=== PATIENT | female | born 2000 | race Caucasian/White ===

== ENCOUNTER 2025-05-25 17:58 | Emergency (ER) | payer OTHER, SELFPAY ==
[2025-05-25 18:06] VITALS: BP 137/87
[2025-05-25 18:28] LABS: Hematocrit 39.8 % (37.0-47.0); Hemoglobin 13.1 g/dL (12.0-16.0); Mean Corp Hgb Conc. 32.9 g/dL (33.0-37.0); Mean Corpuscular Volume 90.7 fL (81.0-99.0); Platelet Count 141 10^3/uL (130-400); Red Cell Dist. Width 12.8 % (11.5-14.5)
[2025-05-25 18:40] LABS: HCG, Serum Qualitative Screen Negative
[2025-05-25 18:44] LABS: ALT (SGPT) 430 U/L (0-35); AST (SGOT) 143 U/L (14-36); Albumin 4.4 g/dl (3.5-5.0); Alkaline Phosphatase 361 U/L (38-126); Blood Urea Nitrogen 13 mg/dl (7-17); Calcium 9.3 mg/dl (8.4-10.2); Carbon Dioxide 28 mmol/L (22-30); Chloride 100 mmol/L (98-107); Glucose 119 mg/dl (70-99); Lipase 219 U/L (23-300); Potassium 4.1 mmol/L (3.5-5.1); Sodium 137 mmol/L (135-145); Total Protein 8.0 g/dl (6.3-8.2); eGFR > 60.00
[2025-05-25 20:32] LABS: Absolute Neutrophils -Man Diff 2.0 10^3/uL (1.4-6.5)
[2025-05-25 20:36] LABS: Normal RBC Morphology Yes; Platelets Checked Yes; Total Cells Counted 100
--- NOTE | 2025-05-25 21:37 | ED.GENMED ---
History of Present Illness
<Heather Tamez PA-C - Last Filed: 05/26/25 09:32>
General
Chief Complaint: Abdominal Pain
Source: patient and family
Exam Limitations: none
Time Seen by Provider: 05/25/25 20:40
Nursing documentation reviewed up to this point in time: agreed with
History of Present Illness
History of Present Illness:
Patient is a 24-year-old healthy female who presents to the emergency department for evaluation of mid back discomfort radiating into upper abdomen. Patient states that symptoms initially started about 1.5 weeks ago. She describes a dull ache in
her mid/right back which was present intermittently however occurring daily. There was no clear postprandial nature to pain however did feel improved when lying flat. Patient states that on Wednesday pain became much more intense and wraps around
into her upper abdomen. She describes a sharp pain under both of her rib cages. She also felt she was unable to take a deep breath as it intensified her discomfort. She was seen by her primary care provider who obtained lab work which showed
elevated liver function. She was then referred for an outpatient ultrasound.
She states that today, after eating lunch she developed severe pain in her upper abdomen which was constant starting at 2 PM until now.
She denies any associated fever, nausea or vomiting. She denies any shortness of breath or hemoptysis. No lower leg swelling or edema. No history of similar symptoms.
No known inciting injury or trauma.
Review of Systems
<Heather Tamez PA-C - Last Filed: 05/26/25 09:32>
Review of Systems
Allergies reviewed?: Yes
All Other Systems: ROS reviewed and negative except as documented in HPI and ROS
Phy Exam
<Heather Tamez PA-C - Last Filed: 05/26/25 09:32>
Physical Exam
Physical Exam:
Vitals: Patient's vital signs are stable. Afebrile
General: Patient is well appearing, no acute distress. Nontoxic appearing
Skin: Warm and dry, no rashes or lesions
Head: Normocephalic, atraumatic
Eyes: Sclera nonicteric.
Throat: Protecting airway
Neck: Normal ROM, no cervical spine tenderness, no meningismus
Cardiac: Regular rate and rhythm, no murmurs.
Pulm: Normal respiratory effort,. Lungs clear bilaterally
Abdomen: Abdomen soft. Mild tenderness in epigastric/right upper quadrant. No rebound tenderness or guarding. Negative Hawk sign. No focal tenderness at McBurney's point.
Back: No midline spinal tenderness. No focal areas of reproducible tenderness or obvious rash.
Extremities: No evidence of cyanosis or edema
Neuro: AAOx3. Grossly intact
Psychiatric: Normal affect.
Course
<Heather Tamez PA-C - Last Filed: 05/26/25 09:32>
Orders/Labs/Results
Orders:
Orders
05/25/25 18:11
Test Result ONCE
05/25/25 18:14
Complete Blood Count/With Diff Urgent
Comprehensive Metabolic Panel Urgent
HCG, Serum Qualitative Screen Urgent
Lipase Urgent
Manual Differential Urgent
Monotest Urgent
Comment: ADD ON
05/25/25 20:43
US Abdomen Complete/Upper Urgent
Comment:
Reason For Exam: Upper abdominal pain
05/25/25 22:02
Add On- LAB Urgent
Tests Added?: monospot
05/25/25 23:21
D-Dimer Urgent
Hepatitis A IgM Antibody Urgent
Hepatitis B Core Ab, IgM Urgent
Hepatitis B Surface Antibody Urgent
Hepatitis B Surface Antigen Urgent
Hepatitis C Antibody Urgent
05/26/25 00:21
CT Pe/abd/pel W Urgent
Comment:
Reason For Exam: RUQ pain, elevated D-dimer
Abnormal Lab Results
05/25/25 05/25/25
18:14 23:21
WBC 11.3 H 10^3/uL
(4.8-10.8)
MCHC 32.9 L g/dL
(33.0-37.0)
MPV 11.3 H fL
(7.4-10.4)
Segmented Neutrophils 15 L %
(42-75)
D-Dimer 0.79 H ug/mlFEU
(0.00-0.50)
Glucose 119 H mg/dl
(70-99)
AST 143 H U/L
(14-36)
ALT 430 H U/L
(0-35)
Alkaline Phosphatase 361 H U/L
(38-126)
Monoscreen Positive A
(Negative)
05/25/25 18:14
05/25/25 18:14
Vital Signs
Initial and Last Documented VS:
Initial Vital Signs
Temp Pulse Resp BP Pulse Ox
98.1 F 101 18 137/87 99
05/25/25 18:06 05/25/25 18:06 05/25/25 18:06 05/25/25 18:06 05/25/25 18:06
Last Documented Vital Signs
Temp Pulse Resp BP Pulse Ox
98.1 F 81 16 128/82 100
05/26/25 00:48 05/26/25 00:48 05/26/25 00:48 05/26/25 00:48 05/26/25 00:48
Katilt;Eufemia Suazo PA-C - Last Filed: 05/26/25 02:37>
Orders/Labs/Results
Orders:
Orders
05/25/25 18:11
Test Result ONCE
05/25/25 18:14
Complete Blood Count/With Diff Urgent
Comprehensive Metabolic Panel Urgent
HCG, Serum Qualitative Screen Urgent
Lipase Urgent
Manual Differential Urgent
Monotest Urgent
Comment: ADD ON
05/25/25 20:43
US Abdomen Complete/Upper Urgent
Comment:
Reason For Exam: Upper abdominal pain
05/25/25 22:02
Add On- LAB Urgent
Tests Added?: monospot
05/25/25 23:21
D-Dimer Urgent
Hepatitis A IgM Antibody Urgent
Hepatitis B Core Ab, IgM Urgent
Hepatitis B Surface Antibody Urgent
Hepatitis B Surface Antigen Urgent
Hepatitis C Antibody Urgent
05/26/25 00:21
CT Pe/abd/pel W Urgent
Comment:
Reason For Exam: RUQ pain, elevated D-dimer
Abnormal Lab Results
05/25/25 05/25/25
18:14 23:21
WBC 11.3 H 10^3/uL
(4.8-10.8)
MCHC 32.9 L g/dL
(33.0-37.0)
MPV 11.3 H fL
(7.4-10.4)
Segmented Neutrophils 15 L %
(42-75)
D-Dimer 0.79 H ug/mlFEU
(0.00-0.50)
Glucose 119 H mg/dl
(70-99)
AST 143 H U/L
(14-36)
ALT 430 H U/L
(0-35)
Alkaline Phosphatase 361 H U/L
(38-126)
Monoscreen Positive A
(Negative)
05/25/25 18:14
05/25/25 18:14
Vital Signs
Initial and Last Documented VS:
Initial Vital Signs
Temp Pulse Resp BP Pulse Ox
98.1 F 101 18 137/87 99
05/25/25 18:06 05/25/25 18:06 05/25/25 18:06 05/25/25 18:06 05/25/25 18:06
Last Documented Vital Signs
Temp Pulse Resp BP Pulse Ox
98.1 F 81 16 128/82 100
05/26/25 00:48 05/26/25 00:48 05/26/25 00:48 05/26/25 00:48 05/26/25 00:48
<Heather Tamez PA-C - Last Filed: 05/26/25 09:32>
MDM/Problems Addressed
Differential Diagnosis Includes:
Not limited to: Biliary colic, acute cholecystitis, choledocholithiasis, pancreatitis, GERD, muscle strain/spasm, etc.
MDM/Problems Addressed:
24-year-old female with 1.5 weeks of right mid back pain occasionally radiating to upper abdomen. No clear postprandial correlation of symptoms. Found to have elevated LFTs outpatient and referred for ultrasound. Vital stable. On exam, patient
appears very well and nontoxic. Her abdomen is soft with mild tenderness in right upper abdomen/epigastric region. No rebound or guarding. Negative Hawk sign. Mid back without any reproducible areas of tenderness, rash, or ecchymosis.
Labs were sent prior to my evaluation. Very mild leukocytosis noted. Chemistry panel reveals transaminitis and elevated alkaline phosphatase however normal bilirubin.
Differential includes possible biliary source such as biliary colic, acute cholecystitis, choledocholithiasis. Other considerations to be pancreatitis, less likely hepatitis. Back pain may be musculoskeletal in nature. Patient does not have any
risk factors for pulmonary embolism, however given somewhat pleuritic component to back pain�this was considered. Will start with abdominal ultrasound. Patient declines analgesia at this time she is very comfortable.
Update: Abdominal ultrasound reveals contracted gallbladder without any acute abnormalities. A Monospot test was added to lab work given transaminitis which did result positive. Will monoinfection may explain transaminitis, it would not explain
patient's abdominal/back pain. With negative ultrasound�was decided to check a D-dimer to rule out a PE. While patient appears very well and comfortable, she does still have some reproducible pain in right upper quadrant. After shared decision
making with patient and mom�will plan to obtain CT scan abdomen/pelvis to ensure no acute intra-abdominal pathology. Patient does have GI follow-up scheduled in 4 days.
Case signed out to Eufemia Suazo PA-C pending D-dimer with plan for CT abdomen/pelvis and chest imaging based on D-dimer results.
Chronic conditions affecting care:
N/A
Acute Exacerbation and/or Progression of Chronic Illness:
N/A
<Heather Tamez PA-C - Last Filed: 05/26/25 09:32>
*Pulse Oximetry
SaO2: 99
Patient hypoxic: no
*EKG
Interpreted by ED Provider?: NA
*Health Record Technician Interpretation
Rate: Health Record Technician- N/A
*Critical Care Note
Total Time (30-74mins, 75-104mins- exclusive of procedures): Not Applicable
<Eufemia Suazo PA-C - Last Filed: 05/26/25 02:37>
Update Note
Update Note:
I assumed care of patient awaiting D-dimer results. D-dimer elevated and CTA CAP subsequently ordered. Preliminary [facility] report is negative for acute findings. Specifically, no evidence of PE and gallbladder is contracted. Patient
stable for discharge. She has an appointment scheduled with gastroenterology in 4 days.
ED Attending Note
<Heather Tamez PA-C - Last Filed: 05/26/25 09:32>
-
Portions of this chart may have been created with voice recognition software.� Occasional wrong word or��sound alike� substitutions may have occurred due to the inherent limitations of voice recognition software.
Discharge Plan
Departure
Patient Disposition: Home (Routine Discharge)
Date of Disposition: 05/26/25
Time of Disposition: 02:14
Patient with high blood pressure during this ER visit?: No
Condition: Good
Discharge Problem:
Mononucleosis, Back pain, Upper abdominal pain, Transaminitis
Instructions: Acid Reflux and GERD in Adults (DC), Abdominal Pain, BLOOD PRESSURE
Prescriptions:
New
pantoprazole 40 mg tablet,delayed release (DR/EC)
40 mg PO DAILY 14 Days Qty: 14 0RF
Referrals:
Stefanie Ledezma MD [Family Provider, Family Practice]
Delma Robertson DO [Active, Gastroenterology]
Activity Restrictions/Additional Instructions:
RETURN TO THE EMERGENCY DEPARTMENT WITH ANY FEVER, PERSISTENT/WORSENING ABDOMINAL OR BACK PAIN, CHEST PAIN OR SHORTNESS OF BREATH, INTRACTABLE NAUSEA/VOMITING, WORSENING IN CURRENT SYMPTOMS, OR ANY OTHER CONCERNS
- As discussed-your liver function enzymes were elevated today in the emergency department. You were found to be positive for mono which may be the cause of the elevated liver function however please have repeat lab work to ensure that this
resolves.
- Otherwise, your workup was negative. A prescription for pantoprazole has been sent to your pharmacy which you can take daily. I recommend bland diet, limit high acid foods, coffee, alcohol.
- Follow-up with GI for further evaluation and/or management. You may require additional imaging or testing if symptoms persist
Monitor your symptoms closely and return to the emergency department with any acute worsening/new symptoms or any other concerns
Interventions
Interventions:
*Risk Screen - Suicide Last Done: 05/25/25 18:06
*General Assessment Last Done: 05/25/25 18:06
*Neglect/Abuse Screening Last Done: 05/25/25 18:06
*ED COVID-19 Vaccine History Last Done: 05/25/25 18:06
*ED Influenza Vaccine History Last Done: 05/25/25 18:06
[facility] Risk Assessment Tool Last Done: 05/25/25 21:56
*Nursing Disposition Last Done: 05/26/25 02:37
IJ-Inlmhr-Nofusciujx Assessment Last Done: 05/25/25 21:00
Discharge Date and Time
Discharge Date/Time: 05/26/25 02:37
Print Language: CITIZEN OF [place]
[2025-05-25 21:55] VITALS: BP 123/79
[2025-05-25 23:43] LABS: D-Dimer 0.79 ug/mlFEU (0.00-0.50)
[2025-05-26 00:25] LABS: Hepatitis B Surface Antigen Negative (Negative)
[2025-05-26 00:42] LABS: Hepatitis C Antibody Negative (Negative)
[2025-05-26 00:48] VITALS: BP 128/82
== END 2025-05-26 02:37 | disposition home or self-care (01) ==
LOC: EMR 17:58
PROVIDERS: Emergency Medicine; Physician Assistant; EMERGENCY PHYSICIAN Emergency Medicine; FAMILY PHYSICIAN Family Medicine
DX: B27.90 Infectious mononucleosis, unspecified without complication (principal); M54.9 Dorsalgia, unspecified; R10.10 Upper abdominal pain, unspecified; R74.01 Elevation of levels of liver transaminase levels; D72.829 Elevated white blood cell count, unspecified
CPT/HCPCS: 99284; 71275; 74177; 76700; 80053; 83690; 84703; 85025; 85379; 86308; 86705; 86706; 86709; 86803; 87340; Q9967